=== PATIENT | female | born 1985 | race Caucasian/White ===

== ENCOUNTER 2016-11-30 20:35 | Emergency (ER) | payer OTHER ==
[2016-11-30] MEDS ORDERED: Ketorolac INJ* 30 MG/ML 1 ML VIAL IV PUSH ONE (20:50)
[2016-11-30] MEDS ORDERED: NS 0.9% 1000 ML* 1,000 ML IV ONE (20:50)
[2016-11-30] MEDS ORDERED: Morphine INJ* 4 MG/ML 1 ML SYRINGE IV ONE (20:50)
[2016-11-30] MEDS ORDERED: Ondansetron INJ* 2 MG/ML VIAL IV ONE (20:50)
--- NOTE | 2016-11-30 21:14 | RAD ---
CLINICAL HISTORY: Left flank pain COMPARISON: November 12, 2010 TECHNIQUE: Multiple contiguous axial CT scans were obtained of the abdomen and pelvis, without intravenous contrast enhancement. Coronal and sagittal multiplanar reformations are submitted for review. Oral contrast was not administered. FINDINGS: The study is limited by the lack of intravenous contrast. This limits evaluation of the solid organs and vasculature. LUNG BASES: The lung bases are clear. LIVER: The liver is normal in shape, size, contour, and attenuation. BILE DUCTS: There is no intrahepatic or extrahepatic biliary dilatation. GALLBLADDER: The gallbladder is incompletely distended, but is grossly normal, without pericholecystic inflammatory change. PANCREAS: The pancreas is normal, without mass or ductal dilatation. SPLEEN: Normal in size and appearance. UPPER GI TRACT: Evaluation of the gastrointestinal tract is limited by incomplete gastric distention. The upper GI tract is unremarkable. SMALL BOWEL AND MESENTERY: The small bowel is normal in contour, course, and caliber. There is no obstruction or dilatation. COLON: The colon is normal in contour, course, caliber. There is no pericolonic inflammatory change. ADRENALS: Normal bilaterally. KIDNEYS: There is a 0.3 cm calculus of the distal left ureter. There is trace hydroureter with minimal pelviectasis. BLADDER: The bladder is collapsed and is not well evaluated PELVIC ORGANS: The uterus and adnexa are grossly normal for technique. AORTA: The aorta is normal. IVC: Unremarkable LYMPH NODES: There is no lymphadenopathy by size criteria. ABDOMINAL WALL: There is no evidence for abdominal wall hernia. BONES AND SOFT TISSUES: Mild degenerative changes are noted most pronounced at L5-S1 OTHER: None IMPRESSION: 0.3 CM CALCULUS OF THE DISTAL LEFT URETER WITH MINIMAL HYDRONEPHROSIS.
[2016-11-30 22:06] LABS: Hematocrit 36 % (35-47); Hemoglobin 11.5 g/dl (12.0-16.0); Mean Corpuscular HGB Conc 32 g/dl (31-36); Mean Corpuscular Hemoglobin 25 pg (27-31); Mean Corpuscular Volume 79 fL (80-97); Mean Platelet Volume 9 um3 (7.4-10.4); Red Blood Count 4.59 10^6/ul (4.0-5.4); Red Cell Distribution Width 15 % (10.5-15); White Blood Count 11.5 10^3/ul (3.5-10.8)
[2016-11-30] MEDS ORDERED: HYDROmorphone* 1 MG/ML 1 ML SYR IV SLOW PU ONE (22:10)
[2016-11-30 22:22] LABS: ALT 15 U/L (7-52); AST 16 U/L (13-39); Albumin 3.6 g/dL (3.2-5.2); Alkaline Phosphatase 50 U/L (34-104); Anion Gap 7 mmol/L (2-11); BUN/Creatinine Ratio 11.1 (8-20); Blood Urea Nitrogen 9 mg/dL (6-24); CO2 Carbon Dioxide 22 mmol/L (22-32); Calcium 8.9 mg/dL (8.6-10.3); Chloride 105 mmol/L (101-111); EGFR African American 105.4 (>60); EGFR Non-African American 81.9 (>60); Globulin 3.3 g/dL (2-4); Glucose 81 mg/dL (70-100); Potassium 3.6 mmol/L (3.5-5.0); Sodium 134 mmol/L (133-145); Total Protein 6.9 g/dL (6.4-8.9)
[2016-11-30 22:52] LABS: Urine Bacteria 1+ (Absent); Urine Bilirubin Negative (Negative); Urine Glucose Negative (Negative); Urine Nitrite Negative (Negative)
[2016-11-30 23:01] LABS: Lipase 37 U/L (11.0-82.0)
[2016-11-30] MEDS ORDERED: oxyCODONE/Acetamin 5/325 MG* TAB PO ONE (23:07)
[2016-11-30] MEDS ORDERED: Tamsulosin CAP* 0.4 MG PO ONE (23:07)
--- NOTE | 2016-11-30 23:17 | ED ---
GI/ HPI - HPI Summary HPI Summary: 31F presents with left sided flank pain for a day. She has history of kidney stones and says that it feels the same. She states the pain is sharp. She admits to frequency. She denies any urgency, hematuria, dysuria, fever, n/v/d/ c. She denies any previous abdominal surgery but she states on her previous kidney stones they had to go in and get it. She has not taken anything for pain. She denies any vaginal discharge or chance that she is . - History of Current Complaint Chief Complaint: EDAbdPain Time Seen by Provider: 11/30/16 20:43 Stated Complaint: ABD PAIN Pain Intensity: 8 - Allergy/Home Medications Allergies/Adverse Reactions: Allergies Allergy/AdvReac Type Severity Reaction Status Date / Time No Known Allergies Allergy Verified 11/30/16 20:39 PMH/Surg Hx/FS Hx/Imm Hx Endocrine/Hematology History: Denies: Hx Anticoagulant Therapy Cardiovascular History: Denies: Hx Pacemaker/ICD Sensory History: Denies: Hx Hearing Aid Psychiatric History: Denies: Hx Panic Disorder - Surgical History Surgery Procedure, Year, and Place: TUMOR REMOVED ABOVE THE LEFT EYE 2006. TITANIUM PLATE PLACED [place], [place]. PT CLEARED VIA ORBIT X- RAYS BY DR LAWLER 09/01/2011 Infectious Disease History: Denies: Traveled Outside the [place] in Last 30 Days - Family History Known Family History: Positive: Cardiac Disease - Social History Substance Use Type: Reports: None Review of Systems Negative: Fever Negative: Chest Pain Negative: Shortness Of Breath Negative: Vomiting, Diarrhea, Nausea Positive: frequency, flank pain. Negative: dysuria All Other Systems Reviewed And Are Negative: Yes Physical Exam Triage Information Reviewed: Yes Vital Signs On Initial Exam: Initial Vitals Temp Pulse Resp BP Pulse Ox 98.8 F 84 16 129/100 98 11/30/16 20:39 11/30/16 20:39 11/30/16 20:39 11/30/16 20:39 11/30/16 20:39 Vital Signs Reviewed: Yes Appearance: Positive: Pain Distress Skin: Positive: Warm, Dry Head/Face: Positive: Normal Head/Face Inspection Eyes: Positive: Normal, Conjunctiva Clear ENT: Positive: Normal ENT inspection, Pharynx normal, TMs normal Respiratory/Lung Sounds: Positive: Clear to Auscultation, Breath Sounds Present Cardiovascular: Positive: Normal, RRR Abdomen Description: Positive: Nontender, Soft, CVA Tenderness (L). Negative: CVA Tenderness (R) Bowel Sounds: Positive: Present Diagnostics - Vital Signs Vital Signs Temp Pulse Resp BP Pulse Ox 11/30/16 22:48 19 11/30/16 21:33 19 11/30/16 20:39 98.8 F 84 16 129/100 98 - Laboratory Lab Results: Lab Results 11/30/16 11/30/16 11/30/16 Range/Units 21:50 21:50 22:39 WBC 11.5 H (3.5-10.8) 10^3/ul RBC 4.59 (4.0-5.4) 10^6/ul Hgb 11.5 L (12.0-16.0) g/dl Hct 36 (35-47) % MCV 79 L (80-97) fL MCH 25 L (27-31) pg MCHC 32 (31-36) g/dl RDW 15 (10.5-15) % Plt Count 310 (150-450) 10^3/ul MPV 9 (7.4-10.4) um3 Neut % (Auto) 69.1 (38-83) % Lymph % (Auto) 21.1 L (25-47) % Saline % (Auto) 6.8 (1-9) % Eos % (Auto) 1.4 (0-6) % Baso % (Auto) 1.6 (0-2) % Absolute Neuts (auto) 8.0 H (1.5-7.7) 10^3/ul Absolute Lymphs (auto) 2.4 (1.0-4.8) 10^3/ul Absolute Monos (auto) 0.8 (0-0.8) 10^3/ul Absolute Eos (auto) 0.2 (0-0.6) 10^3/ul Absolute Basos (auto) 0.2 (0-0.2) 10^3/ul Absolute Nucleated RBC 0 10^3/ul Nucleated RBC % 0 Sodium 134 (133-145) mmol/L Potassium 3.6 (3.5-5.0) mmol/L Chloride 105 (101-111) mmol/L Carbon Dioxide 22 (22-32) mmol/L Anion Gap 7 (2-11) mmol/L BUN 9 (6-24) mg/dL Creatinine 0.81 (0.51-0.95) mg/dL Est GFR ( Amer) 105.4 (>60) Est GFR (Non-Af Amer) 81.9 (>60) BUN/Creatinine Ratio 11.1 (8-20) Glucose 81 (70-100) mg/dL Calcium 8.9 (8.6-10.3) mg/dL Total Bilirubin 0.30 (0.2-1.0) mg/dL AST 16 (13-39) U/L ALT 15 (7-52) U/L Alkaline Phosphatase 50 (34-104) U/L C-React Prot High Sens 11.83 mg/L Total Protein 6.9 (6.4-8.9) g/dL Albumin 3.6 (3.2-5.2) g/dL Globulin 3.3 (2-4) g/dL Albumin/Globulin Ratio 1.1 (1-3) Lipase 37 (11.0-82.0) U/L Beta HCG, Quant < 0.60 mIU/mL Urine Color Yellow Urine Appearance Clear Urine pH 5.0 (5-9) Ur Specific Dawson 1.009 L (1.010-1.030) Urine Protein Negative (Negative) Urine Ketones Negative (Negative) Urine Blood 3+ H (Negative) Urine Nitrate Negative (Negative) Urine Bilirubin Negative (Negative) Urine Urobilinogen Negative (Negative) Ur Leukocyte Esterase Negative (Negative) Urine WBC (Auto) Trace(0-5/hpf) (Absent) Urine RBC (Auto) 3+(>10/hpf) H (Absent) Ur Squamous Epith Cells Present H (Absent) Urine Bacteria 1+ H (Absent) Urine Glucose Negative (Negative) Result Diagrams: 11/30/16 21:50 11/30/16 21:50 Lab Statement: Any lab studies that have been ordered have been reviewed, and results considered in the medical decision making process. - CT abd CT Interpretation: Positive (See Comments) - IMPRESSION: 0.3 CM CALCULUS OF THE DISTAL LEFT URETER WITH MINIMAL HYDRONEPHROSIS. CT Interpretation Completed By: Radiologist TRICE Course/Dx - Course Course Of Treatment: 31F presents with left sided flank pain for a day. She has history of kidney stones and says that it feels the same. She states the pain is sharp. She admits to frequency. She denies any urgency, hematuria, dysuria, fever, n/v/d/c. She denies any previous abdominal surgery but she states on her previous kidney stones they had to go in and get it. She has not taken anything for pain. on exam has positive CVA tenderness on left side. has 3mm stone on left side. prescribed pain medication, zofran and flomax and told to follow up with urology. patient understands and agrees with plan. - Diagnoses Differential Diagnoses - Female: Pyelonephritis, Urinary Tract Infection, Ureteral Calculi Provider Diagnoses: Kidney stone Discharge - Discharge Plan Condition: Good Disposition: HOME Prescriptions: Ondansetron ODT TAB* [Zofran 4 MG Odt TAB*] 4 mg PO Q6H PRN #10 tab.odt PRN Reason: Nausea Tamsulosin CAP* [Flomax CAP*] 0.4 mg PO DAILY #7 cap oxyCODONE/Acetamin 5/325 MG* [Percocet 5/325 TAB*] 1 tab PO Q6H PRN #20 tab MDD 6 PRN Reason: Pain Patient Education Materials: Kidney Stones (ED) Referrals: Eloisa Stoll MD [Primary Care Provider] - Feliciano Muñoz MD [Medical Doctor] - Additional Instructions: Take ibuprofen every 6 hours and narcotic as needed every 6 hours Take Zofran every 6 hours for nausea as needed Take Flomax daily starting tomorrow, first dose given in ED until stone expelled , make sure stand up slowly Follow up with urology, call office tomorrow for appointment Strain urine until collect stone Return to ED if unable to manage pain at home, develop fever, or any new or worsening symptoms
[2016-12-01] MEDS ORDERED: Ondansetron ODT TAB* 4 MG PO ONE (00:19)
[2016-12-01 00:56] VITALS: BP 145/95
== END 2016-12-01 00:59 | disposition home or self-care (01) ==
LOC: ED 20:35
DX: N20.0 Calculus of kidney (principal); R10.84 Generalized abdominal pain
CPT/HCPCS: 36415; 74176; 80053; 81003; 81015; 83690; 84702; 85025; 86141; 87086; 99283; A9270-GY; J1170; J1885; J2270; J2405

== ENCOUNTER 2016-12-20 04:15 | Emergency (ER) | payer OTHER ==
[2016-12-20] MEDS ORDERED: Ketorolac INJ* 30 MG/ML 1 ML VIAL IV ONE (04:32)
[2016-12-20] MEDS ORDERED: Ondansetron INJ* 2 MG/ML VIAL IV ONE ×2 (04:32→07:35)
[2016-12-20] MEDS ORDERED: HYDROmorphone* 1 MG/ML 1 ML SYR IV ONE (04:32)
[2016-12-20] MEDS ORDERED: NS 0.9% 1000 ML* 2,000 ML IV ONE (04:32)
[2016-12-20 04:56] LABS: Hematocrit 37 % (35-47); Mean Corpuscular HGB Conc 32 g/dl (31-36); Mean Corpuscular Hemoglobin 25 pg (27-31); Mean Corpuscular Volume 78 fL (80-97); Mean Platelet Volume 9 um3 (7.4-10.4); Red Blood Count 4.72 10^6/ul (4.0-5.4); Red Cell Distribution Width 15 % (10.5-15); White Blood Count 8.7 10^3/ul (3.5-10.8)
[2016-12-20 05:11] LABS: Albumin 3.7 g/dL (3.2-5.2); BUN/Creatinine Ratio 12.3 (8-20); C Reactive Protein 16.5 mg/L (< 5.00); Calcium 9.1 mg/dL (8.6-10.3); EGFR African American 77.3 (>60); EGFR Non-African American 60.1 (>60); Globulin 3.2 g/dL (2-4); Total Bilirubin 0.5 mg/dL (0.2-1.0); Total Protein 6.9 g/dL (6.4-8.9)
[2016-12-20] MEDS ORDERED: HYDROmorphone* 1 MG/ML 1 ML SYR IV SLOW PU ONE (05:22)
[2016-12-20] MEDS ORDERED: Metoclopramide IV* 5 MG/ML 2 ML VIAL IV ONE (06:23)
--- NOTE | 2016-12-20 06:45 | ED ---
IJim,Kelvin, scribed for Gold Tellez MD on 12/20/16 at 0433 . GI/ HPI - HPI Summary HPI Summary: This 31 y/o female presents to ED for left flank pain since tonight. She was previously seen in ED on 12/07/2016 and diagnosed with kidney stone. Pt states that her pain is used to be up lower. Location of the new pain tonight is located up higher. Pain radiates down to left suprapubic pain. Positive decreased urinary output since 2000 PM last night, and nausea. Negative fever or chills. Deep breath makes the pain worse. Last pain med taken at 2200 PM last night. PMHx includes previous kidney stones s/p surgical removal. Plan of care involving another CT imaging is discussed with pt, and she is agreeable. - History of Current Complaint Chief Complaint: EDFlankPain Time Seen by Provider: 12/20/16 04:25 Stated Complaint: LEFT SIDE KIDNEY STONE Hx Obtained From: Patient, Medical Records Pain Intensity: 9 - Allergy/Home Medications Allergies/Adverse Reactions: Allergies Allergy/AdvReac Type Severity Reaction Status Date / Time No Known Allergies Allergy Verified 11/30/16 20:39 PMH/Surg Hx/FS Hx/Imm Hx Endocrine/Hematology History: Denies: Hx Anticoagulant Therapy Cardiovascular History: Denies: Hx Pacemaker/ICD Sensory History: Denies: Hx Hearing Aid Psychiatric History: Denies: Hx Panic Disorder - Surgical History Surgery Procedure, Year, and Place: TUMOR REMOVED ABOVE THE LEFT EYE 2006. TITANIUM PLATE PLACED [place], [place]. PT CLEARED VIA ORBIT X- RAYS BY DR LAWLER 09/01/2011 Infectious Disease History: No Infectious Disease History: Denies: Traveled Outside the [place] in Last 30 Days - Family History Known Family History: Positive: Cardiac Disease - Social History Alcohol Use: None Substance Use Type: Reports: None Smoking Status (MU): Never Smoked Tobacco Review of Systems Negative: Fever, Chills Positive: Nausea Positive: flank pain - left All Other Systems Reviewed And Are Negative: Yes Physical Exam - Summary Physical Exam Summary: The patient is well-nourished in no acute distress and moderate to severe acute pain. Pt is pretty uncomfortable in stretcher. The skin is warm and dry and skin color reflects adequate perfusion. Not diaphoretic. HEENT: The head is normocephalic and atraumatic. The pupils are equal and reactive. The conjunctivae are clear and without drainage. Nares are patent and without drainage. Mouth reveals moist mucous membranes and the throat is without erythema and exudate. The external ears are intact. The ear canals are patent and without drainage. The tympanic membranes are intact. Neck is supple with full range of motion and non-tender. There are no carotid bruits. There is no neck vein distension. Respiratory: Chest is non-tender. Lungs are clear to auscultation and breath sounds are symmetrical and equal. Cardiovascular: Heart is regular rate and rhythm. There is no murmur or rub auscultated. There is no peripheral edema and pulses are symmetrical and equal. Abdomen: The abdomen is soft and non-tender. There are normal bowel sounds heard in all four quadrants and there is no organomegaly palpated. Positive left CVA tenderness. Musculoskeletal: There is no back pain noted. Extremities are non-tender with full range of motion. Capillary refill less than two seconds. There is no peripheral edema or calf tenderness elicited. Neurological: Patient is alert and oriented to person, place and time. The patient has symmetrical motor strength in all four extremities. Cranial nerves are grossly intact. Deep tendon reflexes are symmetrical and equal in all four extremities. Psychiatric: The patient has an appropriate affect and does not exhibit any anxiety or depression. Triage Information Reviewed: Yes Vital Signs On Initial Exam: Initial Vitals Temp Pulse Resp BP Pulse Ox 97.2 F 96 20 157/108 100 12/20/16 04:20 12/20/16 04:20 12/20/16 04:20 12/20/16 04:20 12/20/16 04:20 Vital Signs Reviewed: Yes Diagnostics - Vital Signs Vital Signs Temp Pulse Resp BP Pulse Ox 12/20/16 04:20 97.2 F 96 20 157/108 100 - Laboratory Lab Results: Lab Results 12/20/16 12/20/16 12/20/16 Range/Units 04:40 04:40 04:40 WBC 8.7 (3.5-10.8) 10^3/ul RBC 4.72 (4.0-5.4) 10^6/ul Hgb 12.0 (12.0-16.0) g/dl Hct 37 (35-47) % MCV 78 L (80-97) fL MCH 25 L (27-31) pg MCHC 32 (31-36) g/dl RDW 15 (10.5-15) % Plt Count 309 (150-450) 10^3/ul MPV 9 (7.4-10.4) um3 Neut % (Auto) 65.2 (38-83) % Lymph % (Auto) 23.8 L (25-47) % [place] % (Auto) 7.1 (1-9) % Eos % (Auto) 2.3 (0-6) % Baso % (Auto) 1.6 (0-2) % Absolute Neuts (auto) 5.7 (1.5-7.7) 10^3/ul Absolute Lymphs (auto) 2.1 (1.0-4.8) 10^3/ul Absolute Monos (auto) 0.6 (0-0.8) 10^3/ul Absolute Eos (auto) 0.2 (0-0.6) 10^3/ul Absolute Basos (auto) 0.1 (0-0.2) 10^3/ul Absolute Nucleated RBC 0 10^3/ul Nucleated RBC % 0 Sodium 133 (133-145) mmol/L Potassium 4.0 (3.5-5.0) mmol/L Chloride 103 (101-111) mmol/L Carbon Dioxide 21 L (22-32) mmol/L Anion Gap 9 (2-11) mmol/L BUN 13 (6-24) mg/dL Creatinine 1.06 H (0.51-0.95) mg/dL Est GFR ( Amer) 77.3 (>60) Est GFR (Non-Af Amer) 60.1 (>60) BUN/Creatinine Ratio 12.3 (8-20) Glucose 101 H (70-100) mg/dL Lactic Acid 1.2 (0.5-2.0) mmol/L Calcium 9.1 (8.6-10.3) mg/dL Total Bilirubin 0.50 (0.2-1.0) mg/dL AST 25 (13-39) U/L ALT 16 (7-52) U/L Alkaline Phosphatase 55 (34-104) U/L C-Reactive Protein 16.50 H (< 5.00) mg/L Total Protein 6.9 (6.4-8.9) g/dL Albumin 3.7 (3.2-5.2) g/dL Globulin 3.2 (2-4) g/dL Albumin/Globulin Ratio 1.2 (1-3) Lipase 22 (11.0-82.0) U/L Result Diagrams: 12/20/16 04:40 12/20/16 04:40 Lab Statement: Any lab studies that have been ordered have been reviewed, and results considered in the medical decision making process. - CT Ab/P CT Interpretation: Positive (See Comments) - Obstructing calculus in the left UVJ measures 2.[address] Interpretation Completed By: Radiologist Re-Evaluation - Re-Evaluation First Eval Re-Evaluation Time: 06:27 Comment: MD in room to update pt on CT Ab/P CT and blood work. Hard copies of CT scan readings and lab work is provided to patient. Feeling much better, but still feeling nausea. GIGU Course/Dx - Course Assessment/Plan: This 31 y/o female presents to ED for new onset of left flank pain since tonight. Pt was seen previously in ED for similar flank pain that was located lower in the back. Upon examination pt is noted with marked CVA tenderness. Pt is however reports today's pain is located further up. CT Ab/P indicates left UVJ stone. Blood work is noted with 1.06 of creatinine and mildlly elevated CRP of 16.50. IV morphine, Reglan, and Zofran were given in ED to control pt's nausea and flank pain. Pt is stable for discharge. - Diagnoses Differential Diagnoses - Female: Ureteral Calculi Provider Diagnoses: left kidney stone at distal ureter Discharge - Discharge Plan Condition: Stable Disposition: HOME Prescriptions: Oxycodone W/ Acetaminophen [Percocet 7.5-325 mg (NF)] 1 tab PO Q6H PRN #20 tab MDD 4 PRN Reason: pain Patient Education Materials: Kidney Stones (ED), Oxycodone/Acetaminophen (By mouth), How to Strain Your Urine (ED) Referrals: Eloisa Stoll MD [Primary Care Provider] - 2 Days Additional Instructions: Be sure to follow up with your urologist at [place]. The documentation as recorded by the Jim akins Soohyun accurately reflects the service I personally performed and the decisions made by , Gold Tellez MD.
[2016-12-20 07:22] LABS: Urine Bacteria Absent (Absent); Urine Bilirubin Negative (Negative); Urine Glucose Negative (Negative); Urine Nitrite Negative (Negative)
[2016-12-20] MEDS ORDERED: Ondansetron INJ* 2 MG/ML VIAL ONE (07:37)
[2016-12-20 07:44] VITALS: BP 98/58
--- NOTE | 2016-12-20 07:58 | RAD ---
CLINICAL HISTORY: Recent left ureteral calculus, hydronephrosis COMPARISON: CT dated November 30, 2016 TECHNIQUE: Multiple contiguous axial CT scans were obtained of the abdomen and pelvis, without intravenous contrast enhancement. Coronal and sagittal multiplanar reformations are submitted for review. Oral contrast was not administered. FINDINGS: The study is limited by the lack of intravenous contrast. This limits evaluation of the solid organs and vasculature. LUNG BASES: The lung bases are clear. LIVER: The liver is normal in shape, size, contour, and attenuation. BILE DUCTS: There is no intrahepatic or extrahepatic biliary dilatation. GALLBLADDER: The gallbladder is normal, without pericholecystic inflammatory change. PANCREAS: The pancreas is normal, without mass or ductal dilatation. SPLEEN: Normal in size and appearance. UPPER GI TRACT: Evaluation of the gastrointestinal tract is limited by incomplete gastric distention. The upper GI tract is unremarkable. SMALL BOWEL AND MESENTERY: The small bowel is normal in contour, course, and caliber. There is no obstruction or dilatation. COLON: The colon is normal in contour, course, caliber. There is no pericolonic inflammatory change. ADRENALS: Normal bilaterally. KIDNEYS: There is a 0.3 cm calculus of the left UVJ. There is mild pelviectasis with moderate hydroureter. BLADDER: The bladder is smooth in contour. PELVIC ORGANS: The uterus and adnexa are grossly normal for technique. AORTA: The aorta is normal. IVC: Unremarkable LYMPH NODES: There is no lymphadenopathy by size criteria. ABDOMINAL WALL: There is no evidence for abdominal wall hernia. BONES AND SOFT TISSUES: There are mild diffuse degenerative changes. OTHER: None IMPRESSION: 0.3 CM LEFT UVJ CALCULUS WITH LEFT-SIDED HYDRONEPHROSIS. PRESUMABLY, THIS REFLECTS THE PREVIOUSLY IDENTIFIED LEFT MID URETERAL CALCULUS, WHICH HAS PROGRESSED DISTALLY.
== END 2016-12-20 08:07 | disposition home or self-care (01) ==
LOC: ED 04:15
DX: N20.0 Calculus of kidney (principal); R10.84 Generalized abdominal pain; R11.0 Nausea
CPT/HCPCS: 36415; 74176; 80053; 81003; 81015; 83605; 83690; 85025; 86140; 87086; 96374; 96375; 99282; J1170; J1885; J2405; J2765

== ENCOUNTER 2019-02-07 18:18 | Emergency (ER) | payer OTHER ==
--- OUTSIDE RECORDS SUMMARY | 2019-02-07 18:30 | XMS REPORT | Summary of Care ---
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 ibuprofen (MOTRIN) Take 200 mg 0 Active 200 MG Oral Tab by mouth EVERY SIX HOURS NEEDED for Pain. ranitidine (ZANTAC) Take 0.5 30 Tab 3 01/09/2019 Active 150 MG Oral Tabs by TabIndications: mouth TWICE Gastroesophageal DAILY. reflux disease without esophagitis Lifitegrast (XIIDRA) Place 1 180 Each 5 09/28/2018 Discontinued 5 % Ophthalmic Drop in 9 (Alternative Solution both eyes Therapy) TWICE DAILY. 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 SS Abnormal US 09/26/2017 11/05/2017 Overview: Incomplete anatomy Please notify and schedule follow-up ultrasound S/P primary low transverse 07/25/2017 03/22/2018 Overview: 32 yo Body mass index is 44.71 kg/m . Hypothyroid on Synthroid Check TFTs monthly Conception occurred with INTRAUTERINE INSEMINATION using donor sperm Anxiety 08/08/2007 07/25/2017 documented as of this encounter (statuses as of 01/09/2019) Immunizations Name Administration Dates Next Due Influenza (IM) Preservative Free 02/08/2018, 03/26/2008 MENINGOCOCCAL CONJUGATE VACCINE 12/17/2002 TDAP Vaccine 12/19/2017 documented as of this encounter Social History Tobacco Use Types Packs/Day Years Used Date Former Smoker Cigarettes 0.25 2 Quit: 01/11/2007 Smokeless Tobacco: Never Used Alcohol Use Drinks/Week oz/Week Comments Yes socially, not while Sex Assigned at Date Recorded Not on file Job Start Date Occupation Industry Not on file Not on file Not on file Travel History Travel Start Travel End No recent travel history available. documented as of this encounter Last Filed Vital Signs Vital Sign Reading Time Taken Comments Blood Pressure 118/70 01/09/2019 12:57 PM EDT Pulse 68 01/09/2019 12:57 PM EDT Temperature - - Respiratory Rate - - Oxygen Saturation 99% 01/09/2019 12:57 PM EDT Inhaled Oxygen Concentration - - Weight 126.6 kg (279 lb) 01/09/2019 12:57 PM EDT Height 165.1 cm (5' 5") 01/09/2019 12:57 PM EDT Body Mass Index 46.43 01/09/2019 12:57 PM EDT documented in this encounter Patient Instructions Patient InstructionsHilary Saniya, NP - 01/09/2019 1:00 PM EDTI've sent in a prescription for ranitidine - please take 1/2 tablet twice daily. If symptoms do notimprove in 2-4 weeks, you can increase this to one tablet twice daily. If symptoms do not improve on the full dose after 2-4 weeks, please return for further evaluation. Follow up as needed, or if symptoms worsen or do not improve. If you have any concerning symptoms such as shortness of breath or chest pain that feels different than your normal pain - please go immediately to the emergency room. Patient Education Acid Reflux (Gastroesophageal Reflux Disease) Discharge Instructions, Adult About this topic GERD stands for gastroesophageal reflux disease. It is sometimes just called reflux. Normally, food goes from the mouth through the food pipe and then into the belly. The food pipe is also called the esophagus. This condition happens when the contents of the belly leak into the food pipe. This leakingcan irritate the food pipe. You may feel a burning pain in your chest called heartburn. You may haveburping, bloating, and belly pain after eating. GERD can be treated in many different ways. Sometimes, doctors use drugs or suggest changes in lifestyle. Other times, diet changes or surgery is needed. What care is needed at home? Ask your doctor what you need to do when you go home. Make sure you ask questions if you do notunderstand what the doctor says. This way you will know what you need to do. Maintain a healthy weight. Avoid stress. Avoid belts and clothes that are too tight. Eat small meals more often. Do not skip meals. Do not eat large meals to make up for missed meals. Avoid eating 2 to 3 hours before bedtime. Do not to lie down for at least 2 hours after eating. Raise the head of your bed 6 to 8 inches (15 to 20 cm). Use wooden blocks under the head of thebed. Just sleeping with your head raised on pillows is not enough. It can cause discomfort and make your signs worse. Do not drink beer, wine, and mixed drinks (alcohol). Do not smoke. What follow-up care is needed? Your doctor may ask you to make visits to the office to check on your progress. Be sure to keep these visits. What drugs may be needed? The doctor may order drugs to: Relieve heartburn Prevent reflux Lessen acid production Heal the esophageal lining Will physical activity be limited? Your physical activities will not be limited. What changes to diet are needed? Limit caffeine intake. Avoid eating oranges, berries, tomatoes, and other foods high in acid. Eat only small amounts of spicy, fatty, and fried foods, or avoid them altogether. Keep track of the foods that cause your signs to become worse. Avoid or limit these food items. What problems could happen? Asthma Precancerous changes in the food pipe Long-term cough Dental problems Higher risk of cancer of the food pipe. This is esophageal cancer. Narrowing of the food pipe. This is a stricture. Open sore in the food pipe. This is an ulcer. When do I need to call the doctor? Pain or a feeling of food getting stuck in your throat Frequent throwing up or throwing up fluid that looks like blood or coffee grounds Pain in the chest or upper part of the belly Very bad heartburn that lasts for a long time Cough, hoarseness of voice, or bad breath Wheezing, shortness of breath or other problems breathing Unintended weight loss or not wanting to eat You are not feeling better in 2 to 3 days or you are feeling worse Teach Back: Helping You Understand The Teach Back Method helps you understand the information we are giving you. The idea is simple. After talking with the staff, tell them in your own words what you were just told. This helps to make sure the staff has covered each thing clearly. It also helps to explain things that may have been a bit confusing. Before going home, make sure you are able to do these: I can tell you about my condition. I can tell you what changes I need to make with my eating habits to ease the reflux. I can tell you what I will do if I am throwing up fluid that looks like blood or coffee grounds. Where can I learn more? National Digestive Diseases Information Clearinghouse http://digestive.niddk.nih.gov/ddiseases/pubs/gerd/ Last Reviewed Date 2017-01-03 Consumer Information Use and Disclaimer This information is not specific medical advice and does not replace information you receive from your health care provider. This is only a brief summary of general information. It does NOT include allinformation about conditions, illnesses, injuries, tests, procedures, treatments, therapies, discharge instructions or life-style choices that may apply to you. You must talk with your health care provider for complete information about your health and treatment options. This information should not beused to decide whether or not to accept your health care providers advice, instructions or recommendations. Only your health care provider has the knowledge and training to provide advice that isright for you. Copyright Copyright 2018 [employer] and its affiliates and/or licensors. All rights reserved. documented in this encounter Progress Notes Saniya Richard NP - 01/09/2019 1:00 PM EDT PATIENT: Yadira Knight : 1985 DATE OF SERVICE: 01/09/2019 CHIEF COMPLAINT: Chief Complaint Patient presents with Chest Pain radiates to back, more in breast Subjective HISTORY OF PRESENT ILLNESS: Yadira Knight is a 33-y.o. female. HPI Chest pain started at the end of , around January of 2018, getting about once a month, always starts at night when laying down. The pain will wake her up, stretching and lifting arms up helps with the pain, as does sitting up or propping up on pillows. When the pain comes it takes about half a day to resolve. Started having pain again at midnight last night, and is just now starting to feel better - usually around mid-morning it will resolve. It is not the same time of the month each month, but usually one day per month or every few weeks. It is not correlated to the menstrual cycle. Unsure what foods or drinks affect ii. Treatments: Tylenol and tums helps a little, but not enough to be able to go back to sleep right away. The pain feels like a band across her chest and epigastric, into her breasts, back and right under the breasts. Relief with standing up and lifting arms. Pain feels like burning and pressure. Denies nausea or vomiting, no changes to her BM's, no blood in stool or urine, no dysuria or frequency. No shortness of breath or palpitations, dizziness or lightheaded, head, neck, shoulder or jaw pain. LMP: 12/17/18, very regular, no problems - came back quickly after having baby. Breastfed for the first month. No discharge from breasts. She had bad heartburn during but resolved after the of her baby. She has anxiety - not diagnosed - she "feels" anxious weekly - feels heaviness in her chest, needingto take a deep breath. RENEA-7 Screening Over the last 2 weeks, how often have you felt nervous, anxious or on edge?: Over half the days Over the last 2 weeks, how often have you not been able to stop or control worrying?: Not at all sure Over the last 2 weeks, how often have you worried too much about different things?: Several days Over the last 2 weeks, how often have you had trouble relaxing?: Over half the days Over the last 2 weeks, how often have you been so restless you couldn't sit still?: Several days Over the last 2 weeks, how often have you become easily annoyed or irritable: Several days Over the last 2 weeks, how often have you felt afraid as if something awful might happen?: Not at all sure RENEA-7 Total Score: 7 How difficult have these problems made it for you to do your work, take care of things at home, or get along with other people?: Not difficult Past Medical History: Diagnosis Date Ankle fracture 1991 Left Anxiety 08/08/2007 Kidney disorder kidney stones Macular edema 05/2018 Left eye Preeclampsia, third trimester s/p urgent section 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 Family History Problem Relation Age of Onset No Known Problems Mother No Known Problems Father GI Brother Goss's Heart Paternal Grandfather Cancer Maternal Grandmother Breast, liver, lung Stroke Maternal Aunt Elvia Gan No Known Problems Son Clotting Disorder No family history Colitis No family history Diabetes No family history Dislocations No family history Heart Disease No family history Psoriasis No family history Osteoporosis No family history Rashes/Skin Problems No family history Severe Sprains No family history Current Outpatient Medications Medication Sig ACETAMINOPHEN 8 HOUR PO Take by mouth NEEDED. ibuprofen (MOTRIN) 200 MG Oral Tab Take 200 mg by mouth EVERY SIX HOURS NEEDED for Pain. ranitidine (ZANTAC) 150 MG Oral Tab Take 0.5 Tabs by mouth TWICE DAILY. No current facility-administered medications for this visit. Allergies Allergen Reactions Benadryl Allergy Dermatologic Reaction Social History Socioeconomic History Marital status: Spouse name: Not on file Number of children: Not on file Years of education: Not on file Highest education level: Not on file Occupational History Not on file Social Needs Financial resource strain: Not on file Food insecurity: Worry: Not on file Inability: Not on file Transportation needs: Medical: Not on file Non-medical: Not on file Tobacco Use Smoking status: Former Smoker Packs/day: 0.25 Years: 2.00 Pack years: 0.50 Types: Cigarettes Last attempt to quit: 01/11/2007 Years since quittin.0 Smokeless tobacco: Never Used Substance and Sexual Activity Alcohol use: Yes Comment: socially, not while Drug use: No Sexual activity: Yes Partners: Female Lifestyle Physical activity: Days per week: Not on file Minutes per session: Not on file Stress: Not on file Relationships Social connections: Talks on phone: Not on file Gets together: Not on file Attends adventist service: Not on file Active member of club or organization: Not on file Attends meetings of clubs or organizations: Not on file Relationship status: Not on file Intimate partner violence: Fear of current or ex partner: Not on file Emotionally abused: Not on file Physically abused: Not on file Forced sexual activity: Not on file Other Topics Concern Not on file Social History Narrative 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 Eyes: Negative for blurred vision and double vision. Respiratory: Negative for cough and shortness of breath. Cardiovascular: Positive for chest pain. Negative for palpitations. Gastrointestinal: Negative for abdominal pain, blood in stool, constipation, diarrhea, heartburn, nausea and vomiting. Genitourinary: Negative for dysuria, frequency, hematuria and urgency. Musculoskeletal: Negative for back pain, joint pain, myalgias and neck pain. Skin: Negative for rash. Neurological: Negative for dizziness, tingling, sensory change, weakness and headaches. Psychiatric/Behavioral: Negative for depression. The patient is nervous/anxious (around eye treatments and social anxiety). Objective PHYSICAL EXAM: VITALS: BP 118/70 (BP Location: Left arm, Patient Position: Sitting) | Pulse 68 | Ht 5' 5" (1.651m) | Wt 279 lb (126.6 kg) | SpO2 99% | ? No | BMI 46.43 kg/m Body mass index is 46.43 kg/m. Physical Exam Constitutional: She is oriented to person, place, and time. She appears well- developed and well-nourished. HENT: Head: Normocephalic and atraumatic. Right Ear: Hearing, tympanic membrane, external ear and ear canal normal. Left Ear: Hearing, tympanic membrane, external ear and ear canal normal. Nose: Nose normal. Mouth/Throat: Oropharynx is clear and moist and mucous membranes are normal. Eyes: Pupils are equal, round, and reactive to light. Neck: Normal range of motion. Neck supple. No spinous process tenderness and no muscular tenderness present. Cardiovascular: Normal rate, regular rhythm, normal heart sounds and intact distal pulses. Exam reveals no gallop and no friction rub. No murmur heard. Pulmonary/Chest: Effort normal and breath sounds normal. No respiratory distress. She exhibits no mass, no tenderness and no bony tenderness. Abdominal: Soft. Bowel sounds are normal. She exhibits no distension and no mass. There is no hepatosplenomegaly. There is tenderness in the epigastric area. There is no rigidity, no rebound, no guarding, no CVA tenderness, no tenderness at McBurney's point and negative Medrano's sign. Lymphadenopathy: She has no cervical adenopathy. Neurological: She is alert and oriented to person, place, and time. Skin: Skin is warm and dry. ASSESSMENT / IMPRESSION: ICD-9-CM ICD-10-CM 1. Gastroesophageal reflux disease without esophagitis 530.81 K21.9 ranitidine ( ZANTAC) 150 MG Oral Tab Plan 1. Gastroesophageal reflux disease without esophagitis Based on her HPI this sounds like GERD, does not sound cardiac/pulmonary in nature - pain is mostly centered in the epigastric area, worse when laying down , better when sitting up, feels like burning.Will trial her on a h2ra. If no improvement in the next 4-8 weeks she will come back for re-evaluation. - ranitidine (ZANTAC) 150 MG Oral Tab; Take 0.5 Tabs by mouth TWICE DAILY. Dispense: 30 Tab; Refill: 3 -If no improvement in 2-4 weeks on 75 mg BID, she will increase dose to 150 mg BID. If no improvement in 2-4 weeks at higher dose, come back for further eval. -Also discussed lifestyle modifications for gerd. Author: Saniya Richard NP 01/09/2019 13:41 documented in this encounter Plan of Treatment Date Type Specialty Care Team Description 04/01/2019 Ocular Visit Ophthalmology Bong Ramsey MD [address] [place] [address] [phone] Health Maintenance Due Date Last Done Comments INFLUENZA VACCINE (#1) 2019 02/08/2018, 03/26/2008 DEPRESSION SCREENING 04/12/2019 04/12/2018 PAP SMEAR 07/25/2020 07/25/2017, 12/26/2012 MENINGOCOCCAL VACCINE IMM Completed 12/17/2002 HPV IMMUNIZATION SERIES Aged Out No longer eligible based on patient's age to complete this topic PNEUMOCOCCAL 0-64 YRS Aged Out No longer eligible based on patient's age to complete this topic documented as of this encounter Goals Goal Patient Goal Associated Recent Patient-Stated? Author Type Problems Progress Blood Pressure Blood Pressure 118/70 No Carri, < 140/90 (01/09/2019 TALIB Mejía 12:57 PM EDT) Note: This is an individualized treatment (blood pressure) goal for Yadira Lion: Displayed above (on the left) is your goal for blood pressure control. Your most recent blood pressure is also shown above, on the right. You should try to achieve blood pressures that are lower than your goal listed above (on the left). Weight loss vs. 18 mo Lifestyle 18.1 (01/09/2019 12:57 PM Kym Paul FNP max (lbs) >= 10 EDT) Note: This is an individualized lifestyle goal for Yadira Knight: Your body mass index (BMI) is more than 30. You should lose weight. A reasonable starting goal is to lose 10 pounds. Displayed above is how many pounds you have lost thus far towards your 10 pound weight loss goal. Take all prescribed medications as Self-management No Kym Christina FNP directed Note: This is an individualized self-management goal for Yadira [place]: Please take all prescribed medications as directed. 1. Do not skip doses. If you cannot afford your medications, talk with your doctor. 2. Use a pill reminder system such as a pill box if needed. Your pharmacist can help you with this. 3. Contact your Pharmacy 5 days before your medication runs out. If you cannot take your medications for any reasons, talk with your doctor. 4. Please bring all of your medication bottles and inhalers (or a list of all your medications/inhalers) with you to every visit. Potential barriers to meeting all of your care plan goals will continue to be addressed on an ongoing basis. documented as of this encounter Results Not on filedocumented in this encounter Visit Diagnoses Diagnosis Gastroesophageal reflux disease without esophagitis - Primary Esophageal reflux documented in this encounter Guarantor Name Account Type Relation to Date of Phone Billing Patient Address Jesika Knight Personal/Family 1985 [id number] [phone] [place], [place] (Work) [id number] documented as of this encounter
[2019-02-07 19:00] LABS: ABS Basophils 0.1 10^3/ul (0-0.2); ABS Eosinophils 0.2 10^3/ul (0-0.6); ABS Lymphocytes 2.1 10^3/ul (1.0-4.8); ABS Monocytes 0.8 10^3/ul (0-0.8); ABS Neutrophils 5.9 10^3/ul (1.5-7.7); Hematocrit 39 % (35-47); Hemoglobin 12.7 g/dL (12.0-16.0); Lymphocyte % 23.2 %; Mean Corpuscular HGB Conc 33 g/dL (31-36); Mean Corpuscular Hemoglobin 25 pg (27-31); Mean Corpuscular Volume 77 fL (80-97); Mean Platelet Volume 8.6 fL (7.4-10.4); Platelet Count 360 10^3/uL (150-450); Red Blood Count 5.09 10^6 /uL (3.70-4.87); Red Cell Distribution Width 15 % (10-15); White Blood Count 9.1 10^3/uL (3.5-10.8)
[2019-02-07 19:19] LABS: Anion Gap 6 mmol/L (2-11); CO2 Carbon Dioxide 25 mmol/L (22-32); Calcium 8.9 mg/dL (8.6-10.3); Chloride 105 mmol/L (101-111); Potassium 3.8 mmol/L (3.5-5.0); Sodium 136 mmol/L (135-145)
[2019-02-07 19:25] LABS: ALT 18 U/L (7-52); AST 19 U/L (13-39); Albumin/Globulin Ratio 1.3 (1-3); Alkaline Phosphatase 58 U/L (34-104); BUN/Creatinine Ratio 16.5 (8-20); Blood Urea Nitrogen 14 mg/dL (6-24); EGFR African American 92.6 (>60); EGFR Non-African American 76.6 (>60); Globulin 3.2 g/dL (2-4); Glucose 93 mg/dL (70-100); Total Protein 7.2 g/dL (6.4-8.9)
[2019-02-07 19:37] LABS: INR 1.17 (0.82-1.09)
--- NOTE | 2019-02-07 21:14 | ED ---
HPI Chest Pain - HPI Summary HPI Summary: This pt is a 33 y/o female presenting to [facility] c/o chest pain and palpitations today. Pt reports she has been having chest pain across her chest for the past month intermittently that has been progressing. Patient states she has seen her PCP about this chest pain and was told it was GERD. Patient notes today while she was sitting at her desk working she had sudden onset of palpitations and chest pain. She states she became dizzy and thought she would pass out with a deep breath. She also reports SOB associated with chest pain. Pt describes her chest pain as tight that has been constant and became worse today. She describes palpitations as fluttering that occur every few hours. Additionally notes nausea and vomiting today while in the waiting room. Denies diaphoresis, fever, chills, diarrhea. Pt denies hx of cardiac or lung disease. FHx of grandfather with triple bypass. PMHx: Preeclampsia, sarcoma left eye. Allergic to topical Benadryl. She reports occasional alcohol use but denies tobacco and drug use. - History of Current Complaint Chief Complaint: EDChestPainROMI Time Seen by Provider: 02/07/19 20:52 Hx Obtained From: Patient Onset/Duration: Started Days Ago, Still Present Timing: Lasting Days Current Severity: Moderate Pain Intensity: 6 Pain Scale Used: 0-10 Numeric Chest Pain Location: Mid Sternal Chest Pain Radiates: No Character: Tightness Aggravating Factor(s): Nothing Alleviating Factor(s): Nothing Associated Signs and Symptoms: Positive: Chest Pain, Dizziness, Shortness of Breath, Nausea, Palpitations, Vomiting. Negative: Fever, Chills, Diaphoresis, Other: - NEGATIVE: diarrhea - Allergy/Home Medications Allergies/Adverse Reactions: Allergies Allergy/AdvReac Type Severity Reaction Status Date / Time No Known Allergies Allergy Verified 11/30/16 20:39 Home Medications: Home Medications NK [No Home Medications Reported] 02/07/19 [History Confirmed 02/07/19] PMH/Surg Hx/FS Hx/Imm Hx Endocrine/Hematology History: Denies: Hx Anticoagulant Therapy Cardiovascular History: Denies: Hx Pacemaker/ICD Sensory History: Denies: Hx Hearing Aid Psychiatric History: Denies: Hx Panic Disorder - Surgical History Surgery Procedure, Year, and Place: TUMOR REMOVED ABOVE THE LEFT EYE 2006. TITANIUM PLATE PLACED [place], [place]. PT CLEARED VIA ORBIT X- RAYS BY DR LAWLER 09/01/2011 - Immunization History Immunizations Up to Date: Yes Infectious Disease History: No Infectious Disease History: Denies: Traveled Outside the [place] in Last 30 Days - Family History Known Family History: Positive: Cardiac Disease - grandfather with triple bypass - Social History Alcohol Use: Occasionally Substance Use Type: Reports: None Smoking Status (MU): Never Smoked Tobacco Review of Systems - ROS Summary Review of Systems Summary: Home Medications Medication Instructions Recorded Confirmed Type NK [No Home Medications Reported] 02/07/19 02/07/19 History Negative: Fever, Skin Diaphoresis Positive: Palpitations, Chest Pain Positive: Shortness Of Breath Positive: Vomiting, Nausea. Negative: Diarrhea Neurological: Other - POSITIVE: dizziness All Other Systems Reviewed And Are Negative: Yes Physical Exam - Summary Physical Exam Summary: General: Well-developed, Morbidly obese female. No apparent distress. HEENT: Normocephalic, Atraumatic. Eyes: Conjuctiva normal, PERRL. Ears: TMs within normal limits. Nares: (-) discharge, (-) erythema. Oropharynx: Clear, mucous membranes moist, (-) exudates. Neck: Soft, FROM, (-) lymphadenopathy, (-) thyromegaly, (-) JVD. Cardiovascular: Normal sinus rhythm, (-) murmur. Lungs: Clear to auscultation bilaterally (-) wheezes, (-) rales, (-) rhonchi. Abdomen: Soft, non-tender, non-distended, (-) organomegaly, normal bowel sounds. Back: (-) CVA tenderness Extremities: No edema. Skin: Warm, dry, (-) rash. Neuro: Alert and oriented x3, no focal deficits. Psychiatric: Mood normal, mildly anxious appearing. Triage Information Reviewed: Yes Vital Signs On Initial Exam: Initial Vitals Temp Pulse Resp BP Pulse Ox 96.8 F 70 20 147/86 100 02/07/19 18:24 02/07/19 18:24 02/07/19 18:24 02/07/19 18:24 02/07/19 18:24 Vital Signs Reviewed: Yes Diagnostics - Vital Signs Vital Signs Temp Pulse Resp BP Pulse Ox 02/07/19 18:24 96.8 F 70 20 147/86 100 - Laboratory Lab Results: Lab Results 02/07/19 02/07/19 02/07/19 Range/Units 18:53 18:53 18:53 WBC 9.1 (3.5-10.8) 10^3/uL RBC 5.09 H (3.70-4.87) 10^6 /uL Hgb 12.7 (12.0-16.0) g/dL Hct 39 (35-47) % MCV 77 L (80-97) fL MCH 25 L (27-31) pg MCHC 33 (31-36) g/dL RDW 15 (10-15) % Plt Count 360 (150-450) 10^3/uL MPV 8.6 (7.4-10.4) fL Neut % (Auto) 65.2 % Lymph % (Auto) 23.2 % Dickinson % (Auto) 8.3 % Eos % (Auto) 2.0 % Baso % (Auto) 1.3 % Absolute Neuts (auto) 5.9 (1.5-7.7) 10^3/ul Absolute Lymphs (auto) 2.1 (1.0-4.8) 10^3/ul Absolute Monos (auto) 0.8 (0-0.8) 10^3/ul Absolute Eos (auto) 0.2 (0-0.6) 10^3/ul Absolute Basos (auto) 0.1 (0-0.2) 10^3/ul Absolute Nucleated RBC 0.0 10^3/ul Nucleated RBC % 0.0 INR (Anticoag Therapy) 1.17 H (0.82-1.09) Sodium 136 (135-145) mmol/L Potassium 3.8 (3.5-5.0) mmol/L Chloride 105 (101-111) mmol/L Carbon Dioxide 25 (22-32) mmol/L Anion Gap 6 (2-11) mmol/L BUN 14 (6-24) mg/dL Creatinine 0.85 (0.51-0.95) mg/dL Est GFR ( Amer) 92.6 (>60) Est GFR (Non-Af Amer) 76.6 (>60) BUN/Creatinine Ratio 16.5 (8-20) Glucose 93 (70-100) mg/dL Calcium 8.9 (8.6-10.3) mg/dL Total Bilirubin 0.30 (0.2-1.0) mg/dL AST 19 (13-39) U/L ALT 18 (7-52) U/L Alkaline Phosphatase 58 (34-104) U/L Troponin I 0.00 (<0.04) ng/mL Total Protein 7.2 (6.4-8.9) g/dL Albumin 4.0 (3.2-5.2) g/dL Globulin 3.2 (2-4) g/dL Albumin/Globulin Ratio 1.3 (1-3) TSH Pending Beta HCG, Quant Pending Result Diagrams: 02/07/19 18:53 02/07/19 18:53 Lab Statement: Any lab studies that have been ordered have been reviewed, and results considered in the medical decision making process. - Radiology Chest XR Radiology Interpretation Completed By: ED Physician Summary of Radiographic Findings: No obvious infiltrates or pleural effusion. Re-Evaluation - Re-Evaluation First Eval Re-Evaluation Time: 22:05 Comment: I have discussed results with the patient. Discussed symptoms that warrant immediate return to the ED. Chest Pain Course/Dx - Course Assessment/Plan: Pt is a 33 y/o female presenting to [facility] c/o sudden onset of chest pain and palpitations today that began while she was sitting at her desk working. She states she became dizzy and thought she would pass out with a deep breath. She also reports SOB associated with chest pain. Pt describes her chest pain as tight that has been constant and became worse today. She describes palpitations as fluttering that occur every few hours. Additionally notes nausea and vomiting today while in the waiting room. Denies diaphoresis, fever, chills, diarrhea. Lab work unremarkable except for TSH of 8.18. Two troponins are both negative. Chest XR shows no obvious infiltrates or pleural effusion. Pt will be discharged home with follow up from her PCP in 3 days. She was instructed to return to the ED for any new or worsening symptoms. - Diagnoses Provider Diagnoses: Chest pain, Palpitations, Anxiety Discharge ED - Sign-Out/Discharge Documenting (check all that apply): Patient Departure - Discharge home Patient Received Moderate/Deep Sedation with Procedure: No - Discharge Plan Condition: Stable Disposition: HOME Patient Education Materials: Chest Pain (ED), Heart Palpitations (ED), Anxiety (ED) Referrals: Cyndie Mcdaniels MD [Primary Care Provider] - 3 Days Additional Instructions: Please follow up with your primary care provider within three days. Please return to the ED for any new or worsening symptoms. - Billing Disposition and Condition Condition: STABLE Disposition: Home - Attestation Statements Document Initiated by Lisa: Yes Documenting Scribe: Ledy Randle Provider For Whom Lisa is Documenting (Include Credential): Dr. Julia Steele MD Scribe Attestation: ILedy scribed for Dr. Julia Steele MD on 02/08/19 at 0042. Scribe Documentation Reviewed: Yes Provider Attestation: The documentation as recorded by the Ledy akins accurately reflects the service I personally performed and the decisions made by me, Dr. Julia Steele MD Status of Scribe Document: Viewed
[2019-02-07 21:31] LABS: HCG Pregnancy < 0.60 mIU/mL
[2019-02-07 21:32] LABS: TSH (Thyroid Stimulating Horm) 8.18 mcIU/mL (0.34-5.60)
[2019-02-07 22:00] VITALS: BP 111/76
== END 2019-02-07 22:10 | disposition home or self-care (01) ==
LOC: ED 18:18
DX: R07.9 Chest pain, unspecified (principal); R00.2 Palpitations; F41.9 Anxiety disorder, unspecified; Z88.8 Allergy status to other drugs, medicaments and biological substances
CPT/HCPCS: 36415; 71045; 80053; 84443; 84484; 84702; 85025; 85610; 93005; 99282